=== PATIENT | female | born 1950 | race American Indian/Alaskan Native ===

== ENCOUNTER 2017-08-16 13:05 | Outpatient (CLI) | payer MEDICARE ==
--- NOTE | 2017-08-20 10:10 | Vascular Lab Report ---
LEFT UPPER EXTREMITY VENOUS DUPLEX: REASON FOR EXAM: Pain and swelling of the left upper extremity COMMENTS ON THE LEFT: All arm veins visualized are freely compressible without evidence of internal echogenicity. The subclavian and internal jugular veins are free of thrombus. Flow is spontaneous and phasic throughout. COMMENTS ON THE RIGHT: The subclavian and internal jugular veins are free of thrombus. IMPRESSION: No evidence of acute or chronic deep venous thrombosis in the left upper extremity.
== END 2017-08-16 13:06 | disposition home or self-care (01) ==
LOC: VAS 13:05
PROVIDERS: ATTEND Internal Medicine Hematology
DX: M79.622 Pain in left upper arm (principal); M79.89 Other specified soft tissue disorders; C90.00 Multiple myeloma not having achieved remission; C56.9 Malignant neoplasm of unspecified ovary